=== PATIENT | female | born 1980 ===

== ENCOUNTER 2016-06-08 22:45 | Emergency (ER) | payer MEDICAID, OTHER ==
[2016-06-08] MEDS ORDERED: HYDROMORPHONE HCL 2 MG/ML 1 ML SOL IV ONE (22:52)
[2016-06-08] MEDS ORDERED: ONDANSETRON HCL 4 MG/2 ML SOL IV ONE (22:52)
[2016-06-08] MEDS ORDERED: ONDANSETRON HCL 4 MG/2 ML SOL ONE (22:55)
[2016-06-08] MEDS ORDERED: HYDROMORPHONE HCL 2 MG/ML 1 ML SOL ONE (22:55)
[2016-06-08] MEDS: SODIUM CHLORIDE 0.9% FLUSH 10 ML SOL IV PRN ×2 (23:03→23:08)
[2016-06-08 23:11] LABS: APPEARANCE,URINE Clear; BILIRUBIN,URINE NEGATIVE (NEGATIVE); COLOR,URINE Yellow; GLUCOSE, URINE (UA) NEGATIVE (NEGATIVE); KETONES,URINE NEGATIVE (NEGATIVE); LEUKOCYTE ESTERASE ,URINE NEGATIVE (NEGATIVE); NITRATE,URINE NEGATIVE (NEGATIVE); OCCULT BLOOD,URINE TRACE INTACT (NEG-TRACE); PH,URINE 5.5; UROBILINOGEN,URINE 0.2 (0.2-1.0 EU)
[2016-06-08 23:15] LABS: CALCIUM 8.4 mg/dl (8.5-10.1)
[2016-06-08 23:17] LABS: BASOPHILS % (AUTO) 1 % (0-3); EOSINOPHILS % (AUTO) 3 % (0-9); HEMATOCRIT 33 % (35-47); MONOCYTES % (AUTO) 5.1 % (0-12); NEUTROPHILS % (AUTO) 66.7 % (37-80)
[2016-06-08] MEDS ORDERED: SODIUM CHLORIDE 0.9% 1000ML 1,000 ML IV ONE (23:18)
[2016-06-08 23:26] LABS: RBC,URINE 0-2 (0-3AV/HPF); WBC,URINE 0-4 (0-5AV/HPF)
[2016-06-08] MEDS ORDERED: DIAZEPAM 5MG/ML SOL IV ONE (23:26)
[2016-06-08 23:27] LABS: MEAN CORPUSCULAR VOLUME 60 fL (81-99)
[2016-06-08] MEDS ORDERED: DIAZEPAM 5MG/ML SOL ONE (23:33)
[2016-06-08 23:41] LABS: ANISOCYTOSIS MOD AMT; HYPOCHROMASIA SLIGHT; OVALOCYTES PRESENT
[2016-06-08 23:42] LABS: HEMOGLOBIN A1C 6.5 % (4.8-6.0)
[2016-06-08] MEDS ORDERED: AZITHROMYCIN 250 MG TAB PO ONE (23:58)
[2016-06-08] MEDS ORDERED: CEFTRIAXONE 1 GM PDS 1 GM in SODIUM CHLORIDE 0.9% 100 ML 100 ML IV ONE (23:58)
[2016-06-09] MEDS ORDERED: CEFTRIAXONE 1 GM PDS ONE (00:05)
[2016-06-09] MEDS ORDERED: AZITHROMYCIN 250 MG TAB ONE (00:05)
[2016-06-09 00:24] VITALS: BP 143/93; PULSE 59; RESP 20; TEMP 98.2; O2SAT 98
[2016-06-09] MEDS ORDERED: ONDANSETRON HCL 4 MG/2 ML SOL ONE (00:35)
[2016-06-09] MEDS: SODIUM CHLORIDE 0.9% FLUSH 10 ML SOL IV PRN (00:38)
[2016-06-09] MEDS ORDERED: ONDANSETRON HCL 4 MG/2 ML SOL IV ONE (00:38)
[2016-06-09] MEDS ORDERED: APAP/HYDROCODONE 325/5 TAB PO ONE (01:01)
[2016-06-09] MEDS ORDERED: APAP/HYDROCODONE 325/5 TAB ONE (01:02)
== END 2016-06-09 01:16 | disposition home or self-care (01) | DRG 552 ==
LOC: ED 22:45
DX: M54.5 Low back pain (principal); E11.9 Type 2 diabetes mellitus without complications; M62.830 Muscle spasm of back; R35.0 Frequency of micturition; R39.15 Urgency of urination; R30.9 Painful micturition, unspecified; R31.0 Gross hematuria; Z79.84 Long term (current) use of oral hypoglycemic drugs
CPT/HCPCS: 80048; 81001; 83036; 84703; 85025; 99285; J0696; J1170; J2405; J3360

== ENCOUNTER 2016-10-10 08:49 | Emergency (ER) | payer SELFPAY ==
[2016-10-10 09:20] LABS: APPEARANCE,URINE Cloudy; BILIRUBIN,URINE NEGATIVE (NEGATIVE); COLOR,URINE Yellow; GLUCOSE, URINE (UA) NEGATIVE (NEGATIVE); KETONES,URINE NEGATIVE (NEGATIVE); LEUKOCYTE ESTERASE ,URINE 1+ (NEGATIVE); NITRATE,URINE POSITIVE (NEGATIVE); OCCULT BLOOD,URINE 3+ (NEG-TRACE); UROBILINOGEN,URINE 0.2 (0.2-1.0 EU)
[2016-10-10] MEDS ORDERED: FENTANYL 100MCG/2ML SOL IV ONE ×2 (09:20→09:57)
[2016-10-10] MEDS ORDERED: FENTANYL 100MCG/2ML SOL ONE ×2 (09:21→09:59)
[2016-10-10 09:23] LABS: BASOPHILS % (AUTO) 1 % (0-3); EOSINOPHILS % (AUTO) 1 % (0-9); HEMATOCRIT 31 % (35-47); MONOCYTES % (AUTO) 7.4 % (0-12); NEUTROPHILS % (AUTO) 72.2 % (37-80)
[2016-10-10 09:25] LABS: MEAN CORPUSCULAR VOLUME 62 fL (81-99)
[2016-10-10 09:34] LABS: WBC,URINE 150-200 (0-5AV/HPF)
[2016-10-10 09:35] LABS: ALBUMIN 3.6 gm/dl (3.4-5.0); CALCIUM 8.5 mg/dl (8.5-10.1); POTASSIUM 3.6 mMol/L (3.5-5.1)
[2016-10-10] MEDS ORDERED: CEFTRIAXONE 1 GM (PREMIX) 1 GM/50 ML SOL IV ONE (09:35)
[2016-10-10 09:38] LABS: ANISOCYTOSIS MOD AMT; HYPOCHROMASIA SL; OVALOCYTES PRESENT
[2016-10-10] MEDS ORDERED: CEFTRIAXONE 1 GM PDS ONE (09:38)
[2016-10-10] MEDS ORDERED: CEFTRIAXONE 1 GM PDS 1 GM in SODIUM CHLORIDE 0.9% 100 ML 100 ML IV ONE (09:42)
[2016-10-10] MEDS ORDERED: APAP/OXYCODONE 325/5 TAB PO ONE (11:30)
[2016-10-10] MEDS ORDERED: APAP/OXYCODONE 325/5 TAB ONE (11:32)
[2016-10-10 12:10] VITALS: PULSE 76; RESP 20; O2SAT 98
[2016-10-10 14:45] VITALS: BP 141/86; TEMP 97.6
== END 2016-10-10 14:15 | disposition home or self-care (01) | DRG 690 ==
LOC: ED 08:49
DX: N10 Acute pyelonephritis (principal)
CPT/HCPCS: 74177; 80053; 81001; 84703; 85025; 87077; 87088; 87186; 99285; J0696; J3010

== ENCOUNTER 2018-02-13 14:04 | Emergency (ER) | payer MEDICAID ==
[2018-02-13 15:55] LABS: BASOPHILS % (AUTO) 1 % (0-3); EOSINOPHILS % (AUTO) 2 % (0-9); HEMATOCRIT 29 % (35-47); HEMOGLOBIN 8.2 gm/dl (12.0-15.5); LYMPHOCYTES % (AUTO) 26.8 % (10-50); MEAN CORPUSCULAR HEMOGLOBIN 17.4 pg (27.0-32.0); MEAN CORPUSCULAR HGB CONC 28.6 gm/dl (32.0-36.0); MONOCYTES % (AUTO) 7.7 % (0-12); NEUTROPHILS % (AUTO) 62.5 % (37-80)
[2018-02-13 16:04] LABS: MEAN CORPUSCULAR VOLUME 61 fL (81-99)
[2018-02-13 16:11] LABS: ALBUMIN 3.3 gm/dl (3.4-5.0); ANISOCYTOSIS MARKED; BILIRUBIN,TOTAL 0.3 mg/dl (0.2-1.0); CALCIUM 8.4 mg/dl (8.5-10.1); CARBON DIOXIDE 23.5 mEq/L (21-32); CREATININE 0.56 mg/dl (0.60-1.00); HYPOCHROMASIA MOD; OVALOCYTES PRESENT; POIKILOCYTOSIS MOD AMT; POTASSIUM 3.5 mMol/L (3.5-5.1); SPHEROCYTES PRESENT; TARGET CELLS PRESENT; TOTAL PROTEIN 7.6 gm/dl (6.4-8.2)
[2018-02-13 16:14] LABS: HEMOGLOBIN A1C 5.6 % (4.8-6.0)
[2018-02-13 16:53] VITALS: BP 151/90; PULSE 72; RESP 18; TEMP 96.8; O2SAT 100
== END 2018-02-13 17:31 | disposition home or self-care (01) | DRG 914 ==
LOC: ED 14:04
DX: T14.8XXA Other injury of unspecified body region, initial encounter (principal); T76.21XA Adult sexual abuse, suspected, initial encounter
CPT/HCPCS: 36415; 71111; 73070; 73130; 80053; 83036; 85025; 99283